=== PATIENT | female | born 1950 | race Hispanic/Latino ===

== ENCOUNTER 2021-12-28 19:54 | Emergency (ER) | payer OTHER ==
--- OUTSIDE RECORDS SUMMARY | 2021-12-28 19:57 | XMS REPORT | Continuity of Care Document ---
:1950 Author Organization [facility] t Address [address] [place] [address] Care Team Providers Name Role Phone OLIVIA BLISS Primary Care Physician Unavailable Pob, Adc Lab Main Attending Clinician Unavailable Elis Orlando DO Attending Clinician Elis ORLANDO Attending Clinician Unavailable Payers Payer Name Policy Type Policy Number Effective Date Expiration Date S ource Problems Condition Condition Condition Status Onset Resolution Last Treating Co mments Source Name Details Category Date Date Treatment Clinician Date Sepsis due Sepsis due Disease Active U nivers to urinary to urinary 8-13 it y of tract tract 00:00: [place] infection infection 00 [facility] Branch Pyelonephr Pyelonephr Disease Active U nivers itis itis 8-12 ity of 00:00: [place] [address] [place] [address] Branch Allergies, Adverse Reactions, Alerts Allergy Allergy Status Severity Reaction(s) Onset Inactive Treating Comm ents Source Name Type Date Date Clinician NO KNOWN Drug Active Univers ALLERGIE Class ity of S [place] [facility] Social History Social Habit Start Date Stop Date Quantity Comments Source Sex Assigned At [birth year] [facility] 00:00:00 00:00:00 Medical Branch Smoking Status Start Date Stop Date Source Never smoker [facility] Branch Medications Ordered Filled Start Stop Current Ordering Indication Dosage Frequency Signature Comments Components Source Medication Medication Date Date Medication? Clinician (SIG) Name Name metFORMIN 2020-06 Yes 500mg Take 500 Uni vers (GLUCOPHAGE 0-08 mg by ity of ) 500 mg 17:49: mouth 2 [place] tablet 39 (two) Medical times Branch daily with meals. LOSARTAN 2020-06 Yes 40mg Take 40 mg Uni vers POTASSIUM 0-08 by mouth ity of (LOSARTAN 17:49: daily. [place] ORAL) 39 Medical Branch sitaGLIPtin 2020-06 Yes 100mg Take 100 U nivers (JANUVIA) 0-08 mg by ity of 100 mg 17:49: mouth [place] tablet 39 daily. Medical Branch aspirin 81 2020-06 Yes 81mg Take 81 mg U nivers mg chewable 0-08 by mouth ity of tablet 17:49: at [place] 39 bedtime. Medical Branch Immunizations Ordered Filled Immunization Date Status Comments Sour e Immunization Name Name Pneumococcal 2016-01-21 [facility] o f Polysaccharide, 00:00:00 [facility] ical PPSV23 (PNEUMOVAX) Branch Procedures Procedure Date / Time Performing Clinician Source Performed PHOSPHORUS 2021-11-25 13:13:00 Cm Orlando [facility] URIC ACID 2021-11-25 13:13:00 Cm Orlando [facility] MAGNESIUM 2021-11-25 13:13:00 Cm Orlando [facility] IMMUNOGLOBULIN G A M 2021-11-25 13:13:00 Cm Orlando [facility] PANEL Medical Branch MICROALBUMIN URINE 2021-11-25 13:13:00 Cm Orlando [facility] COMP. METABOLIC PANEL 2021-11-25 13:13:00 Cm Orlando [facility] ([id number]) Medical Branch CBC WITH DIFF 2021-11-25 13:13:00 Cm Orlando [facility] GLYCOSYLATED HEMOGLOBIN 2021-11-25 13:13:00 Cm Orlando [facility] (A1C) Medical Branch URINALYSIS 2021-11-25 13:13:00 Cm Orlando [facility] Encounters Start End Encounter Admission Attending Care Care Encounter Source Date/Time Date/Time Type Type Clinicians Facility Department ID 2021-11-25 2021-11-25 Tong Hooker [place], Malik Lab Main [facility] [id number] Univers 07:30:00 07:45:00 Visit Cm Orlando [id number] klarissa [facility] [id number] Fletcher ALEMAN [id number] [address] 2021-11-25 2021-11-25 Outpatient R [facility] [id number] [facility] 07:30:00 07:30:00 CM cyr [facility] Results Test Description Test Time Test Comments Results Result Comments Source IMMUNOGLOBULIN G A M PANEL 2021-11-25 18:49:07 Test Item Value Reference Range Interpretation Comme nts IgA (test code = 4744003035) 290 mg/dL 70-312 IgG (test code = 9768782686) 1340 mg/dL 636-1600 IgM (test code = 0046273979) 74 mg/dL 56-352 Lab Interpretation (test code = 50340-3) [facility] 15:08:41 Test Item Value Reference Range Interpretation Comments MAGNESIUM (test code = 4410000954) 1.5 mg/dL 1.7-2.4 L Lab Interpretation (test code = Abnormal 95226-5) [facility] ([id number][facility]2021-11-25 15:08:21 Test Item Value Reference Range Interpretation Comments NA (test code = 128 mmol/L 135-145 L 0412609761) K (test code = 4.7 mmol/L 3.5-5.0 7317819794) CL (test code = 93 mmol/L 98-108 L 4656003373) CO2 TOTAL (test code = 24 mmol/L 23-31 6213779141) AGAP (test code = 2-16 5158916730) BUN (test code = 23 mg/dL 7-23 1492583183) GLUCOSE (test code = 135 mg/dL 70-110 H 7994708807) CREATININE (test code = 1.07 mg/dL 0.50-1.04 H 8463421439) TOTAL BILI (test code = 0.4 mg/dL 0.1-1.9 8836019444) CALCIUM (test code = 9.8 mg/dL 8.6-10.6 3248372142) T PROTEIN (test code = 7.6 g/dL 6.3-8.2 8949432369) ALBUMIN (test code = 4.7 g/dL 3.5-5.0 4398779283) ALK PHOS (test code = 65 U/L 34-122 8918180020) ALTv (test code = 23 U/L 5-35 1742-6) AST(SGOT) (test code = 30 U/L 13-40 6719285050) eGFR (test code = mL/min/1.73m2 2051434560) TALON (test code = TALON) Association of Glomerular Filtration Rate (GFR) and Staging of Kidney Disease* + --+ --+ ------+| GFR (mL/min/1.73 m2) ?| With Kidney Damage ?| ?Without Kidney Damage+ --------+ --------+ +| ?>90 ?| ?Stage one ?| ? Normal ?+ ---+ ---+ -------+| ?60-89 ?| ?Stage two ?| ? Decreased GFR ? + --+ --+ ------+| ?30-59 ?| ?Stage three ?| ? Stage three ? + --+ --+ ------+| ?15-29 ?| ?Stage four ? | ? Stage four ?+ ---+ ---+ -------+| ?<15 (or dialysis) ? ?| ?Stage five ? | ? Stage five ?+ ---+ ---+ -------+ *Each stage assumes the associated GFR level has been in effect for at least three months. ?Stages 1 to 5, with or without kidney disease, indicate chronic kidney disease. Notes: Determination of stages one and two (with eGFR >59mL/min/1.73 m2) requires estimation of kidney damage for at least three months as defined by structural or functional abnormalities of the kidney, manifested by either:Pathological abnormalities or Markers of kidney damage (including abnormalities in the composition of the blood or urine or abnormalities in imaging tests). Lab Interpretation Abnormal (test code = 88235-5) [facility] 15:08:21 Test Item Value Reference Range Interpretation Comments PHOSPHORUS (test code = 7413465578) 3.1 mg/dL 2.5-5.0 Lab Interpretation (test code = Normal 62460-6) [facility] [id number] 15:08:01 Test Item Value Reference Range Interpretation Comments URIC ACID (test code = 5874066048) 4.2 mg/dL 2.9-6.0 Lab Interpretation (test code = Normal 69677-9) [facility] (A1C)2021-11-25 15:06:50 Test Item Value Reference Range Interpretation Comments HGB A1C (test code = 5.9 % 4.0-5.7 H 4548-4) TALON (test code = TALON) Reference RangesNormal: <5.7%Prediabetes: 5.7 - 6.4%Diabetes: > 6.5% Lab Interpretation (test Abnormal code = 06306-0) [facility] [id number] 13:47:11 Test Item Value Reference Range Interpretation Comments WBC (test code = See_Comment [Automated 5690-2) message] The sy stem which generated this result transmitted reference range : 4.30 - 11.10 10*3/?L. The reference range was not used to interpret this result as normal/abnormal . RBC (test code = See_Comment [Automated 029-8) message] The sy stem which generated this result transmitted reference range : 3.93 - 5.25 10*6/?L. The reference range was not used to interpret this result as normal/abnormal . HGB (test code = 12.0 g/dL 11.6-15.0 718-7) HCT (test code = 35.8 % 35.7-45.2 4544-3) MCV (test code = 86.1 fL 80.6-95.5 787-2) MCH (test code = 28.8 pg 25.9-32.8 785-6) MCHC (test code = 33.5 g/dL 31.6-35.1 786-4) RDW-SD (test code = 38.1 fL 39.0-49.9 L 87375-5) RDW-CV (test code = 12.0 % 12.0-15.5 788-0) PLT (test code = See_Comment [Automated 777-3) message] The sy stem which generated this result transmitted reference range : 166 - 358 10*3/ ?L. The reference r michel was not used to interpret this result as normal/abnormal . MPV (test code = 9.6 fL 9.5-12.9 91910-4) NRBC/100 WBC (test See_Comment [Automat ed code = 5942844885) message] The system which generated this result transmitted reference range : 0.0 - 10.0 /100 WBCs. The refer ence range was not u sed to interpret th is result as normal/abnormal . NRBC x10^3 (test code <0.01 See_Comment [Auto mated = 5706985593) message] The s ystem which generated this result transmitted reference range : 10*3/?L. The reference range was not used to interpret this result as normal/abnormal . GRAN MAT (NEUT) % 58.9 % (test code = 770-8) IMM GRAN % (test code 0.40 % = 9896800347) LYMPH % (test code = 29.4 % 736-9) MONO % (test code = 6.5 % 5905-5) EOS % (test code = 3.1 % 713-8) BASO % (test code = 1.7 % 706-2) GRAN MAT x10^3(ANC) 2.70 10*3/uL 1.88-7.09 (test code = 8546487354) IMM GRAN x10^3 (test <0.03 0.00-0.06 code = 4978383245) LYMPH x10^3 (test code 1.35 10*3/uL 1.32-3.29 = 731-0) MONO x10^3 (test code 0.30 10*3/uL 0.33-0.92 L = 742-7) EOS x10^3 (test code = 0.14 10*3/uL 0.03-0.39 711-2) BASO x10^3 (test code 0.08 10*3/uL 0.01-0.07 H = 704-7) Lab Interpretation Abnormal (test code = 99449-6) [facility] + FREE T4 [id number] 03:40:47 Test Item Value Reference Range Interpretation Comments TSH, THIRD GENERATION (test code 3.910 UIU/ML 0.400-4.100 = 2821) FREE T4 (THYROXINE) (test code = 1.34 NG/DL 0.80-1.90 2823) LIPID [id number] 03:30:08 Test Item Value Reference Range Interpretation Comments CHOLESTEROL (test 144 MG/DL <200 code = 2210) TRIGLYCERIDES (test 75 MG/DL <150 code = 2232) HDL CHOLESTEROL (test 61 MG/DL >39 code = 2220) CALC LDL CHOL (test 67 MG/DL <100 NOTE: C ALCULATED LDL code = 2237) IS BASED ON WINSTON-RAMOS METHOD WHICHINCLUDES ADJUSTABLE TRIGLYCERIDE:VL DL CHOLESTEROL RAT IO.THIS FACTOR VARIES B Y MEASURED TRIGLY CERIDE AND NON-HDLCHOL ESTEROL CONCENTRATIONS WITH INCREASED CALCU LATED LDL SEENIN HIGH ER TRIGLYCERIDE OR LOWER NON-HDL SPECIME NS. FOR MOREINFORMATION , SEE CLIENT ANNOUNCE MENT AT [email or web address] [email or web address] RATIO LDL/HDL 1.10 RATIO <3.22 (test code = 2237) HEPATIC FUNCTION [id number] 03:30:08 Test Item Value Reference Range Interpretation Comments PROTEIN, TOTAL (test 7.0 G/DL 6.1-8.3 code = 2228) ALBUMIN (test code = 4.5 G/DL 3.5-5.2 2200) BILIRUBIN, TOTAL (test 0.3 MG/DL See_Comment [Aut omated message] code = 2207) The system As It Is generated this result transmitted ref erence range: <=1.2. T he reference range was not used to int erpret this result as normal/abnormal . BILIRUBIN, DIRECT 0.1 MG/DL 0.0-0.3 (test code = 2021) ALKALINE PHOSPHATASE 58 U/L 40-142 (test code = 2204) AST (test code = 2218) 34 U/L 9-40 ALT (test code = 2219) 28 U/L 5-40 RENAL FUNCTION [id number] 03:30:08 Test Item Value Reference Range Interpretation Comments GLUCOSE (test code 146 MG/DL 70-99 H = 2216) BUN (test code = 23 MG/DL 8-23 2207) CREATININE (test 1.52 MG/DL 0.60-1.30 H code = 2214) eGFR (2020 CKD-EPI) 37 ML/MIN/1.73 >60 L (test code = 47906) CALC BUN/CREAT 15 RATIO 6-28 (test code = 2235) SODIUM (test code = 139 MEQ/L 950-105 5630) POTASSIUM (test 4.8 MEQ/L 3.5-5.4 code = 2228) CHLORIDE (test code 103 MEQ/L 95-107 = 2214) CARBON DIOXIDE 21 MEQ/L 19-31 (test code = 2206) CALCIUM (test code 9.6 MG/DL 8.5-10.5 = 2208) PHOSPHORUS (test 3.4 MG/DL 2.5-4.5 code = 7) ALBUMIN (test code 4.5 G/DL 3.5-5.2 UN LESS = 2200) OTHERWISE INDIC ATED, ALL TESTING PER FORMED ATCLINICAL PATH [facility] Droplet, I MD. [address] [place] [address] LABORATORY DIRE CTOR: Alana QUINTEROIA NUMBER [id number] CAP ACCREDITATION N O. [id number] HEMOGLOBIN [id number] 06:07:02 Test Item Value Reference Range Interpretation Comments HEMOGLOBIN A1c (test 6.8 % 4.2-5.6 H BURMESE DIABETES code = 14793) ASSOCIATION IDELINES FOR HGB A1C: PREDIABETES/INC REASED RISK . . . . . . . 5.7 -6.4% DIAGNOSIS OF D IABETES . . . . . . . . . > =6.5% WITH CONFIRM ATION OR APPROPRIATE SYM PTOMS NOTE: ASSAY MAY BE AFFECTED BY HEMOGLOBINOP ATHIES (SICKLE CODY L ANEMIA, S-C DISEASE, OTHERS ) OR ARTIFICIALLY LO WERED BY DECREASED RED C ELL SURVIVAL (HEMOLYTIC ANEM IAS, BLOOD LOSS, ETC.) . CONSIDER ALTERNATE TESTI NG OR LABORATORY CONS ULTATION. UNLESS OTHER JULIAN INDICATED, ALL TESTING PERFORMED ATCLI NICAL PATHOLOGY LABOR [facility] [address] [place] [address] [employer] STEAMER: OSKAR BERNAL M.D. CLIA NUMBER [id number] CAP ACCREDITATION N O. [id number]"
--- NOTE | 2021-12-28 20:34 | ER ---
Nurse's Notes [facility] Name: Greer Mitchell Age: 71 yrs Sex: Female : 1950 Arrival Date: 12/28/2021 Time: 19:57 Bed Waiting Private MD: Elizabeth Bay R Diagnosis: Essential (primary) hypertension Presentation: 12/28 20:33 Chief complaint: Patient states: [employer] MACHINE READ HER BLOOD PRESSURE HIGH. [facility] Coronavirus screen: Vaccine status: Patient reports receiving the 2nd dose of the covid vaccine. At this time, the client does not indicate any symptoms associated with coronavirus-19. Ebola Screen: Patient negative for fever greater than or equal to 101.5 degrees Fahrenheit, and additional compatible Ebola Virus Disease symptoms. Initial Sepsis Screen: Does the patient meet any 2 criteria? No. Patient's initial sepsis screen is negative. Does the patient have a suspected source of infection? No. Patient's initial sepsis screen is negative. Risk Assessment: Do you want to hurt yourself or someone else? Patient reports no desire to harm self or others. Onset of symptoms was December 28, 2021. 20:33 Method Of Arrival: Ambulatory [facility] 20:33 Acuity: SAMMY 5 [facility] Triage Assessment: 20:34 General: Appears in no apparent distress. Behavior is calm, cooperative, appropriate [facility] for age. Pain: Denies pain. Historical: - Allergies: 20:34 NKDA; [facility] - Immunization history:: Adult Immunizations up to date. - Social history:: Smoking status: Patient denies any tobacco usage or history of. Screenin:35 Abuse screen: Denies threats or abuse. Nutritional screening: No deficits noted. [facility] Tuberculosis screening: No symptoms or risk factors identified. Fall Risk None identified. Vital Signs: 20:33 BP 159 / 79; Pulse 88; Resp 20; Temp 98.3(TE); Pulse Ox 100% on R/A; Weight 56.25 kg; 1 Height 5 ft. 1 in. (154.94 cm); Pain 0/10; 20:33 Body Mass Index 23.43 (56.25 kg, 154.94 cm) [facility] ED Course: 19:57 Patient arrived in ED. mr 19:57 Elizabeth Bay MD is Private Physician. mr 20:12 Seth Valadez DO is Attending Physician. ms3 20:33 Elizabeth Bay MD is Referral Physician. ms3 20:34 Triage completed. bh1 20:34 Arm band placed on. bh1 20:35 Patient has correct armband on for positive identification. bh1 20:35 No provider procedures requiring assistance completed. Patient did not have IV access bh1 during this emergency room visit. Administered Medications: No medications were administered Medication: 20:35 VIS not applicable for this client. 1 Outcome: 20:34 Discharge ordered by . ms3 20:34 Discharged to home ambulatory. bh1 20:34 Condition: good 20:34 Discharge instructions given to patient, Instructed on discharge instructions, follow up and referral plans. Demonstrated understanding of instructions, follow-up care. 20:37 Patient left the ED. 1 Signatures: Andria Scherer mr Seth Valadez DO DO ms3 Sara Obrien, RN RN bh1
--- NOTE | 2021-12-28 20:34 | EDPHYS ---
Physician Documentation [facility] Name: Greer Mitchell Age: 71 yrs Sex: Female : 1950 Arrival Date: 12/28/2021 Time: 19:57 Bed Waiting Private MD: Elizabeth Bay R ED Physician Seth Valadez HPI: 12/28 20:34 This 71 yrs old Female presents to ER via Ambulatory with complaints of High ms3 Blood Pressure. 20:34 71-year-old female with past medical history of hypertension presents for elevated ms3 blood pressure that began on Thursday. Patient states she has called her primary care physician and was started on losartan 50 mg daily. Patient denies chest pain, shortness of breath, nausea, headache. Patient denies alleviating or inciting factors.. Historical: - Allergies: 20:34 NKDA; bh1 - Immunization history:: Adult Immunizations up to date. - Social history:: Smoking status: Patient denies any tobacco usage or history of. ROS: 20:34 Constitutional: Negative for fever, and chills. Neck: Negative for injury, pain, and ms3 swelling, Cardiovascular: Negative for chest pain, and palpitations. Respiratory: Negative for shortness of breath, cough, wheezing, and pleuritic chest pain, Abdomen/GI: Negative for abdominal pain, nausea, vomiting, diarrhea, and constipation, MS/Extremity: Negative for injury and deformity, Skin: Negative for injury, rash, and discoloration, Neuro: Negative for headache, weakness, numbness, tingling. Psych: Negative for depression, anxiety, suicide ideation, homicidal ideation, and hallucinations. 20:34 All other systems are negative. Exam: 20:34 Constitutional: This is a well developed, well nourished patient who is awake, alert, ms3 and in no acute distress. Head/Face: Normocephalic, atraumatic. Eyes: Pupils equal round and reactive to light, extra-ocular motions intact. Lids and lashes normal. Conjunctiva and sclera are non-icteric and not injected. Periorbital areas with no swelling, redness, or edema. Chest/axilla: Normal chest wall appearance and motion. Nontender with no deformity. Cardiovascular: Regular rate and rhythm with a normal S1 and S2. No gallops, murmurs, or rubs. Normal PMI, no JVD. No pulse deficits. Respiratory: Lungs have equal breath sounds bilaterally, clear to auscultation and percussion. No rales, rhonchi or wheezes noted. No increased work of breathing, no retractions or nasal flaring. Abdomen/GI: Soft, non-tender, with normal bowel sounds. No distension or tympany. No guarding or rebound. No evidence of tenderness throughout. Skin: Warm, dry with normal turgor. Normal color with no rashes, no lesions, and no evidence of cellulitis. MS/ Extremity: Pulses equal, no cyanosis. Neurovascular intact. Full, normal range of motion. Psych: Awake, alert, with orientation to person, place and time. Behavior, mood, and affect are within normal limits. Vital Signs: 20:33 BP 159 / 79; Pulse 88; Resp 20; Temp 98.3(TE); Pulse Ox 100% on R/A; Weight 56.25 kg; bh1 Height 5 ft. 1 in. (154.94 cm); Pain 0/10; 20:33 Body Mass Index 23.43 (56.25 kg, 154.94 cm) bh1 MDM: 20:34 Patient medically screened. ms3 20:34 Data reviewed: vital signs, nurses notes, and as a result, I will discharge patient. ms3 Data interpreted: Pulse oximetry: on room air is 100 %. Interpretation: normal. Counseling: I had a detailed discussion with the patient and/or guardian regarding: the historical points, exam findings, and any diagnostic results supporting the discharge/admit diagnosis, the need for outpatient follow up, to return to the emergency department if symptoms worsen or persist or if there are any questions or concerns that arise at home. Administered Medications: No medications were administered Disposition Summary: 12/28/21 20:34 Discharge Ordered Location: Home ms3 Condition: Stable ms3 Diagnosis - Essential (primary) hypertension ms3 Followup: ms3 - With: Elizabeth Bay MD - When: 2 - 3 days - Reason: Recheck today's complaints Discharge Instructions: - Discharge Summary Sheet ms3 - Hypertension, Adult ms3 Forms: - Medication Reconciliation Form ms3 - Thank You Letter ms3 - Antibiotic Education ms3 - Prescription Opioid Use ms3 Signatures: Seth Valadez, DO ms3 Sara Obrien RN RN bh1 Corrections: (The following items were deleted from the chart) 12/29 05:57 05:55 This 71 yrs old Female presents to ER via Ambulatory with complaints of ms3 High Blood Pressure. ms3
[2021-12-28 20:43] VITALS: BP 159/79; TEMP 98.3; O2SAT 100
== END 2021-12-28 20:37 | disposition home or self-care (01) ==
LOC: ER 19:54
DX: I10 Essential (primary) hypertension (principal)
CPT/HCPCS: 99281

== ENCOUNTER 2022-01-03 11:19 | Emergency (ER) | payer OTHER ==
[2022-01-03 12:30] LABS: Urine Blood Negative (Negative); Urine Glucose Negative (Negative); Urine Protein Negative (Negative); Urine pH 5.5 (5.0-7.0)
[2022-01-03] MEDS ORDERED: ONDANSETRON 4 MG/2 ML VIAL ONE (12:33)
[2022-01-03] MEDS ORDERED: NA CHLORIDE 0.9% 500 ML ONE (12:33)
--- NOTE | 2022-01-03 12:51 | RAD REPORT ---
EXAM DESCRIPTION: RAD - Chest Single View - 01/03/2022 12:43 pm CLINICAL HISTORY: COUGH Chest pain. COMPARISON: No comparisons FINDINGS: Portable technique limits examination quality. The lungs are grossly clear. The heart is normal in size. No displaced fractures. IMPRESSION: No acute intrathoracic process suspected.
[2022-01-03 13:07] LABS: Absolute Lymphocytes (CBC) 1.1 K/uL (0.7-4.9); Hematocrit 37.1 % (36.0-45.0); MCV 84.3 fL (80-100); MPV 7.7 fL (7.6-11.3)
[2022-01-03 13:08] LABS: Protime INR 1.24; SARS-CoV-2 Antigen Rapid Res Negative (Negative)
[2022-01-03 13:23] LABS: Albumin 3.9 g/dL (3.4-5.0); Bilirubin Direct 0.1 mg/dL (0-0.2); Bilirubin Total 0.4 mg/dL (0.2-1.0); Magnesium 1.9 mg/dL (1.8-2.4); Potassium 3.8 mmol/L (3.5-5.1); Protein, Total 7.9 g/dL (6.4-8.2); Thyroid Stimulating Hormone 2.05 uIU/mL (0.360-3.740); Troponin High Sensitivity 3.3 pg/mL (<58.9); Uric Acid 3.8 mg/dL (2.6-6.0)
--- NOTE | 2022-01-03 13:34 | ER ---
Nurse's Notes [facility] Name: Greer Mitchell Age: 71 yrs Sex: Female : 1950 Arrival Date: 01/03/2022 Time: 11:21 Bed 10 Private MD: Diagnosis: Hypo-osmolality and hyponatremia;Weakness;Nausea Presentation: 01/03 11:54 Chief complaint: Patient states: my body doesn't feel good, I feel anxious , has body iw aches and feels very weak, +nausea, no vomiting or diarrhea, was seen here Thursday for high BP and on Thursday her PCP added on amlodipine 5 mg daily , she normally just takes losartan 50 mg , denies fever or chills. Coronavirus screen: Client presents with at least one sign or symptom that may indicate coronavirus-19. Ebola Screen: Patient negative for fever greater than or equal to 101.5 degrees Fahrenheit, and additional compatible Ebola Virus Disease symptoms Patient denies exposure to infectious person. Patient denies travel to an Ebola-affected area in the 21 days before illness onset. No symptoms or risks identified at this time. 11:54 Method Of Arrival: Ambulatory iw 11:57 Initial Sepsis Screen: Does the patient meet any 2 criteria? No. Patient's initial iw sepsis screen is negative. Does the patient have a suspected source of infection? No. Patient's initial sepsis screen is negative. Risk Assessment: Do you want to hurt yourself or someone else? Patient reports no desire to harm self or others. Onset of symptoms was December 29, 2021. 11:57 Acuity: SAMMY 3 iw Historical: - Allergies: 11:57 NKDA; iw - Home Meds: 11:57 amlodipine 5 mg tab 1 tab once daily [Active]; losartan 50 mg oral tab 1 tab once daily iw [Active]; pravastatin 20 mg oral tab 1 tab once daily [Active]; metformin 500 mg Oral tab 1 tab 2 times per day [Active]; levothyroxine 25 mcg tab 1 tab once daily [Active]; - PMHx: 11:57 Hypertensive disorder; Hypothyroidism; Diabetes mellitus; Hypercholesterolemia; iw - PSHx: 11:57 ectopic pregnany; Cholecystectomy; iw - Immunization history:: Client reports receiving the 2nd dose of the Covid vaccine. - Social history:: Smoking status: Patient denies any tobacco usage or history of. Screenin:50 Abuse screen: Denies threats or abuse. Nutritional screening: No deficits noted. bm7 Tuberculosis screening: No symptoms or risk factors identified. Fall Risk None identified. Assessment: 12:50 Reassessment: Patient and/or family updated on plan of care and expected duration. Pain bm7 level reassessed. Patient is alert, oriented x 3, equal unlabored respirations, skin warm/dry/pink. 13:09 Reassessment: Patient and/or family updated on plan of care and expected duration. Pain bm7 level reassessed. Patient is alert, oriented x 3, equal unlabored respirations, skin warm/dry/pink. Patient states feeling better. Patient states symptoms have improved. 15:02 Reassessment: Patient and/or family updated on plan of care and expected duration. Pain bm7 level reassessed. Patient is alert, oriented x 3, equal unlabored respirations, skin warm/dry/pink. 15:45 Reassessment: Patient and/or family updated on plan of care and expected duration. Pain bm7 level reassessed. Patient is alert, oriented x 3, equal unlabored respirations, skin warm/dry/pink. Vital Signs: 11:54 BP 146 / 79; Pulse 82; Resp 16; Temp 97.8; Pulse Ox 100% on R/A; iw 13:09 BP 146 / 64; Pulse 78; Resp 16; Pulse Ox 99% on R/A; bm7 14:11 BP 148 / 71; Pulse 68; Resp 16; Pulse Ox 99% on R/A; Pain 0/10; bm7 14:30 BP 133 / 74; Pulse 72; Resp 16; Pulse Ox 99% on R/A; Pain 0/10; bm7 15:45 BP 132 / 68; Pulse 70; Resp 16; Pulse Ox 100% on R/A; bm7 16:40 BP 134 / 66; Pulse 76; Resp 16; Pulse Ox 100% on R/A; Pain 0/10; bm7 ED Course: 11:21 Patient arrived in ED. rg4 11:57 Triage completed. iw 11:59 Arm band placed on. iw 12:02 Mauricio Nagel MD is Attending Physician. edna 12:17 Edie Elizondo RN is Primary Nurse. bm7 12:44 XRAY Chest (1 view) In Process Unspecified. EDMS 12:50 No apparent distress. Awaiting lab results. bm7 12:50 Patient has correct armband on for positive identification. Placed in gown. Bed in low bm7 position. Call light in reach. Side rails up X 1. Adult w/ patient. Client placed on continuous cardiac and pulse oximetry monitoring. NIBP monitoring applied. buckle sewer on. Warm blanket given. 12:50 Initial lab(s) drawn, by me, sent to lab. Urine collected: clean catch specimen, clear, bm7 EKG done, by ED staff, reviewed by Mauricio Nagel MD COVID swab sent to lab. X-ray(s) taken. Inserted saline lock: 20 gauge in right antecubital area, using aseptic technique. Blood collected. 13:33 Walker Prasad MD is Hospitalizing Provider. edna 15:33 Lab(s) recollected, by me, sent to lab. bm7 16:15 Amanuel Rizo DO is Referral Physician. edna 16:40 No provider procedures requiring assistance completed. IV discontinued, intact, bm7 bleeding controlled, No redness/swelling at site. Pressure dressing applied. Administered Medications: 14:12 Discontinued: NS 0.9% 1000 ml IV at 75 ml/hr continuous bm7 12:44 Drug: NS 0.9% 500 ml Route: IV; Rate: bolus; Site: right antecubital; bm7 13:10 Follow up: IV Intake: 500ml bm7 12:44 Drug: Zofran (Ondansetron) 4 mg Route: IVP; Site: right antecubital; bm7 13:09 Follow up: Response: Nausea is decreased bm7 13:46 Drug: NS 0.9% 1000 ml Route: IV; Rate: 75 ml/hr; Site: right antecubital; bm7 14:14 Drug: NS 0.9% 500 ml Route: IV; Rate: bolus; Site: right antecubital; bm7 15:02 Follow up: IV Status: Completed infusion; IV Intake: 500ml bm7 Medication: 12:50 VIS not applicable for this client. bm7 Intake: 13:10 IV: 500ml; Total: 500ml. bm7 15:02 IV: 500ml; Total: 1000ml. bm7 Outcome: 13:34 Decision to Hospitalize by Provider. edna 16:15 Discharge ordered by . edna 16:40 Discharged to home ambulatory, with family. bm7 16:40 Condition: improved 16:40 Discharge instructions given to patient, family, Instructed on discharge instructions, medication usage, Demonstrated understanding of instructions, medications. 16:41 Patient left the ED. bm7 Signatures: Dispatcher [employer] EDAK Mauricio Nagel MD MD cha Williams, Irene, Emily Waldron RN 4 Edie Elizondo RN RN 7
--- NOTE | 2022-01-03 13:35 | EDPHYS ---
Physician Documentation [facility] Name: Greer Mitchell Age: 71 yrs Sex: Female : 1950 Arrival Date: 01/03/2022 Time: 11:21 Bed 10 Private MD: ED Physician Mauricio Nagel HPI: 01/03 12:15 This 71 yrs old Female presents to ER via Ambulatory with complaints of edna Weakness. 12:15 . NAUSEA , WEAKNESS. Onset: The symptoms/episode began/occurred 2 day(s) ago. Severity edna of symptoms: At their worst the symptoms were mild in the emergency department the symptoms are unchanged. The patient has not experienced similar symptoms in the past. Historical: - Allergies: 11:57 NKDA; iw - Home Meds: 11:57 amlodipine 5 mg tab 1 tab once daily [Active]; losartan 50 mg oral tab 1 tab once daily iw [Active]; pravastatin 20 mg oral tab 1 tab once daily [Active]; metformin 500 mg Oral tab 1 tab 2 times per day [Active]; levothyroxine 25 mcg tab 1 tab once daily [Active]; - PMHx: 11:57 Hypertensive disorder; Hypothyroidism; Diabetes mellitus; Hypercholesterolemia; iw - PSHx: 11:57 ectopic pregnany; Cholecystectomy; iw - Immunization history:: Client reports receiving the 2nd dose of the Covid vaccine. - Social history:: Smoking status: Patient denies any tobacco usage or history of. ROS: 12:15 Constitutional: Negative for fever, chills, and weight loss, Eyes: Negative for injury, edna pain, redness, and discharge, ENT: Negative for injury, pain, and discharge, Neck: Negative for injury, pain, and swelling, Cardiovascular: Negative for chest pain, palpitations, and edema, Respiratory: Negative for shortness of breath, cough, wheezing, and pleuritic chest pain, Back: Negative for injury and pain, : Negative for injury, bleeding, discharge, and swelling, MS/Extremity: Negative for injury and deformity, Skin: Negative for injury, rash, and discoloration, Neuro: Negative for headache, weakness, numbness, tingling, and seizure, Psych: Negative for depression, anxiety, suicide ideation, homicidal ideation, and hallucinations, Allergy/Immunology: Negative for hives, rash, and allergies, Endocrine: Negative for neck swelling, polydipsia, polyuria, polyphagia, and marked weight changes, Hematologic/Lymphatic: Negative for swollen nodes, abnormal bleeding, and unusual bruising. 12:15 Abdomen/GI: Positive for abdominal pain, nausea. Exam: 12:15 Constitutional: This is a well developed, well nourished patient who is awake, alert, edna and in no acute distress. Head/Face: Normocephalic, atraumatic. Eyes: Pupils equal round and reactive to light, extra-ocular motions intact. Lids and lashes normal. Conjunctiva and sclera are non-icteric and not injected. Cornea within normal limits. Periorbital areas with no swelling, redness, or edema. ENT: Nares patent. No nasal discharge, no septal abnormalities noted. Tympanic membranes are normal and external auditory canals are clear. Oropharynx with no redness, swelling, or masses, exudates, or evidence of obstruction, uvula midline. Mucous membranes moist. Neck: Trachea midline, no thyromegaly or masses palpated, and no cervical lymphadenopathy. Supple, full range of motion without nuchal rigidity, or vertebral point tenderness. No Meningismus. Chest/axilla: Normal chest wall appearance and motion. Nontender with no deformity. No lesions are appreciated. Cardiovascular: Regular rate and rhythm with a normal S1 and S2. No gallops, murmurs, or rubs. Normal PMI, no JVD. No pulse deficits. Respiratory: Lungs have equal breath sounds bilaterally, clear to auscultation and percussion. No rales, rhonchi or wheezes noted. No increased work of breathing, no retractions or nasal flaring. Back: No spinal tenderness. No costovertebral tenderness. Full range of motion. Female : Normal external genitalia. Skin: Warm, dry with normal turgor. Normal color with no rashes, no lesions, and no evidence of cellulitis. MS/ Extremity: Pulses equal, no cyanosis. Neurovascular intact. Full, normal range of motion. Neuro: Awake and alert, GCS 15, oriented to person, place, time, and situation. Cranial nerves II-XII grossly intact. Motor strength 5/5 in all extremities. Sensory grossly intact. Cerebellar exam normal. Normal gait. Psych: Awake, alert, with orientation to person, place and time. Behavior, mood, and affect are within normal limits. 12:15 Abdomen/GI: Inspection: abdomen appears normal, Bowel sounds: normal, Palpation: nontender, in all quadrants, Liver: no appreciated palpable abnormalities, Hernia: not appreciated. 13:01 ECG was reviewed by the Attending Physician. [facility] Vital Signs: 11:54 BP 146 / 79; Pulse 82; Resp 16; Temp 97.8; Pulse Ox 100% on R/A; iw 13:09 BP 146 / 64; Pulse 78; Resp 16; Pulse Ox 99% on R/A; bm7 14:11 BP 148 / 71; Pulse 68; Resp 16; Pulse Ox 99% on R/A; Pain 0/10; bm7 14:30 BP 133 / 74; Pulse 72; Resp 16; Pulse Ox 99% on R/A; Pain 0/10; bm7 15:45 BP 132 / 68; Pulse 70; Resp 16; Pulse Ox 100% on R/A; bm7 16:40 BP 134 / 66; Pulse 76; Resp 16; Pulse Ox 100% on R/A; Pain 0/10; bm7 MDM: 12:02 Patient medically screened. [facility] 12:17 Differential diagnosis: Nonspecific abd pain, gastritis, cholecystitis, pancreatitis. [facility] Data reviewed: vital signs, nurses notes, lab test result(s), EKG, radiologic studies, plain films. Data interpreted: manager monitoring: rate is 82 beats/min, rhythm is regular, Pulse oximetry: on room air is 100 %. Test interpretation: by ED physician or midlevel provider: ECG, plain radiologic studies. Counseling: I had a detailed discussion with the patient and/or guardian regarding: the historical points, exam findings, and any diagnostic results supporting the discharge/admit diagnosis, lab results, radiology results. 01/03 12:10 Order name: Basic Metabolic Panel; Complete Time: 13:29 [facility] 01/03 12:10 Order name: CBC with Diff; Complete Time: 14:16 [facility] 01/03 12:10 Order name: LFT's; Complete Time: 13:29 [facility] 01/03 12:10 Order name: Magnesium; Complete Time: 13:29 [facility] 01/03 12:10 Order name: NT PRO-BNP; Complete Time: 13:29 [facility] 01/03 12:10 Order name: PT-INR; Complete Time: 13:29 [facility] 01/03 12:10 Order name: Troponin HS; Complete Time: 13:29 [facility] 01/03 12:10 Order name: SARS RAPID; Complete Time: 13: [facility] 01/03 12:10 Order name: Uric Acid; Complete Time: : [facility] 01/03 12:10 Order name: Urine Osmolality; Complete Time: : [facility] 01/03 12:10 Order name: Urine Sodium Random; Complete Time: 13:29 [facility] 01/03 12:10 Order name: TSH; Complete Time: 13: [facility] 01/03 12:31 Order name: Urine Dipstick-Ancillary; Complete Time: 13: EDMS 01/03 12:10 Order name: XRAY Chest (1 view); Complete Time: 13: [facility] 01/03 12:10 Order name: EKG; Complete Time: 12:12 [facility] 01/03 12:10 Order name: Cardiac monitoring; Complete Time: 12:45 [facility] 01/03 12:10 Order name: EKG - Nurse/Tech; Complete Time: 12:57 [facility] 01/03 12:10 Order name: IV Saline Lock; Complete Time: 12:45 [facility] 01/03 12:10 Order name: Labs collected and sent; Complete Time: 12:45 01/03 12:10 Order name: O2 Per Protocol; Complete Time: 12:45 [facility] 01/03 12:10 Order name: O2 Sat Monitoring; Complete Time: 12:45 [facility] 01/03 14:47 Order name: Chem 7: 330pm; Complete Time: 16:15 [facility] EC:01 Rate is 71 beats/min. Rhythm is regular. QRS [place] is Normal. [place] interval is normal. QRS edna interval is normal. QT interval is normal. No Q waves. T waves are Normal. No ST changes noted. Clinical impression: NSR w/ Non-specific ST/T Changes and No evidence of ischemia. Interpreted by me. Reviewed by me. Administered Medications: 14:12 Discontinued: NS 0.9% 1000 ml IV at 75 ml/hr continuous bm7 12:44 Drug: NS 0.9% 500 ml Route: IV; Rate: bolus; Site: right antecubital; bm7 13:10 Follow up: IV Intake: 500ml bm7 12:44 Drug: Zofran (Ondansetron) 4 mg Route: IVP; Site: right antecubital; bm7 13:09 Follow up: Response: Nausea is decreased bm7 13:46 Drug: NS 0.9% 1000 ml Route: IV; Rate: 75 ml/hr; Site: right antecubital; bm7 14:14 Drug: NS 0.9% 500 ml Route: IV; Rate: bolus; Site: right antecubital; bm7 15:02 Follow up: IV Status: Completed infusion; IV Intake: 500ml bm7 Disposition Summary: 01/03/22 16:15 Discharge Ordered Location: Home(01/03/22 16:15) edna Problem: new(01/03/22 16:15) edna Symptoms: have improved(01/03/22 16:15) edna Condition: Stable(01/03/22 16:15) edna Diagnosis - Hypo-osmolality and hyponatremia(01/03/22 16:15) edna - Weakness(01/03/22 16:15) edna - Nausea(01/03/22 16:15) edna Followup: edna - With: Private Physician - When: 2 - 3 days - Reason: Recheck today's complaints, Continuance of care, Re-evaluation by your physician Followup: edna - With: - When: 2 - 3 days - Reason: Recheck today's complaints, Continuance of care, Re-evaluation by your physician Discharge Instructions: - Discharge Summary Sheet edna - Hyponatremia edna - Nausea, Adult edna - Weakness edna - Hyponatremia, [id number] edna - Weakness, [id number] edna - Nausea, Adult, [id number] edna Forms: - Medication Reconciliation Form edna - Thank You Letter edna - Antibiotic Education edna - Prescription Opioid Use edna Prescriptions: - Zofran 4 mg Oral Tablet - take 1 tablet by ORAL route every 12 hours As needed; 20 tablet; Refills: 0, edna Product Selection Permitted Signatures: Dispatcher [employer] EDMauricio Bush MD MD cha Williams, Irene, RN RN iw Edie Elizondo RN RN bm7 Corrections: (The following items were deleted from the chart) 14:25 13:34 Inpatient Admission edna iw 14:25 13:34 Walker Prasad edna iw 14:25 13:34 Telemetry/MedSurg (Inpatient) edna iw 14:25 13:34 Fair edna iw 14:25 13:34 new edna iw 14:25 13:34 have improved edna iw 14:25 13:34 Standard edna iw 13:34 [facility] iw 13:34 Weakness [facility] iw 13:34 Hypo-osmolality and hyponatremia - 124 [facility] iw 13:34 Nausea [facility] iw
[2022-01-03] MEDS ORDERED: NA CHLORIDE 0.9% 1,000 ML ONE (13:49)
[2022-01-03 18:44] VITALS: BP 118/57; TEMP 98.4; O2SAT 97
--- NOTE | 2022-01-06 12:28 | EKG ---
Test Date: 2022-01-03 Test Time: 12:49:14 [employer] [facility] Practitioner: MB MEASUREMENT RESULTS: Intervals: Rate: 71 AK: 156 QRSD: 112 QT: 404 QTc: 439 Fisher: P: 62 AK: 156 QRS: -45 T: 82 INTERPRETIVE STATEMENTS: Normal sinus rhythm Left anterior fascicular block Abnormal ECG No previous ECG available for comparison Electronically Signed On 01-06-22 12:24:58 CDT by Rufus Lopez
== END 2022-01-03 16:41 | disposition home or self-care (01) ==
LOC: ER 11:19
DX: E87.1 Hypo-osmolality and hyponatremia (principal); R11.0 Nausea; E11.9 Type 2 diabetes mellitus without complications; I10 Essential (primary) hypertension; E03.9 Hypothyroidism, unspecified; Z20.822 Contact with and (suspected) exposure to COVID-19
CPT/HCPCS: 85025; 80048 ×2; 36415; 83735; 85610; 84300; 80076; 84550; 84443; 81003; 84484; 83880; 83935; 71045; 87811; J7040; J7030; J2405; 93005; 96361; 96374; 99284